=== PATIENT | female | born 1960 | race Caucasian/White ===

== ENCOUNTER 2019-12-13 10:49 | Outpatient (CLI) | payer OTHER, SELFPAY ==
--- NOTE | ~2019-12-13 | MR_ITS ---
EXAMINATION: MR lumbar spine wo con DATE: 12/13/2019 11:48 INDICATION: Low back pain TECHNIQUE: Magnetic resonance imaging (MRI) of the lumbar spine was performed without intravenous con trast. Sequences included sagittal T2-weighted FSE, sagittal T2-weighted FS FSE, sagittal T1-weighted FSE, and axial T2-weighted FSE. COMPARISON: None FINDINGS: 2 mm anterolisthesis L4 on L5. Vertebral body heights are normal. Schmorl's nodes along the endplates from 11 T12-L3 L4. Normal marrow signal. Mild disc height loss from T11-T12 through L5-S1. Annular f issure at L5-S1. The conus medullaris terminates at L2 on L2. There is normal signal in the caudal sp inal cord. Paravertebral soft tissues are unremarkable. The following disc levels are specifically di scussed: T12-L1: Disc is mildly bulging. In addition Schmorl's node along the inferior endplate of T12 results in 2 mm left paracentral retropulsion. There is mild bilateral facet joint osteoarthritis. There is no neural foraminal stenosis. There is mild central canal stenosis with mild flattening of the left v entral surface of the cord. L1-L2: Disc is mildly bulging. There is minimal bilateral facet joint osteoarthritis. There is mild b ilateral neural foraminal stenosis. There is mild central canal stenosis. L2-L3: Disc is bulging superimposed right foraminal zone disc protrusion. There is mild right and min imal left facet joint osteoarthritis. There is mild right and minimal left neural foraminal stenosis. There is mild central canal stenosis. L3-L4: Diffuse disc bulge. There is mild to moderate right and minimal left facet joint osteoarthriti s. There is mild bilateral neural foraminal stenosis. There is moderate to severe central canal steno sis measuring 4-5 mm AP in the mid sagittal plane with minimal CSF signal surrounding the centrally c lustered nerve roots along with narrowing of the lateral recesses, right greater than left. L4-L5: Disc is bulging. There is mild to moderate right and minimal left facet joint osteoarthritis. There is mild to moderate bilateral neural foraminal stenosis. There is moderate central canal stenos is along with narrowing of the lateral recesses, right greater than left.. L5-S1: Disc is mildly bulging with superimposed central annular fissure and disc protrusion. There is mild bilateral facet joint osteoarthritis. There is mild bilateral neural foraminal stenosis. There is minimal central canal stenosis with mild narrowing of the lateral recesses, left greater than righ t. IMPRESSION: 1. Moderate cervical spondylosis most notable for moderate to severe central canal stenosis at L3-L4. Reviewed, dictated and finalized at location A. IMPRESSION: 1. Moderate cervical spondylosis most notable for moderate to severe central ca nal stenosis at L3-L4.
== END 2019-12-13 10:50 | disposition home or self-care (01) ==
PROVIDERS: PCP Family Medicine; Visit Provider Physical Medicine & Rehabilitation Pain Medicine
DX: M47.816 Spondylosis without myelopathy or radiculopathy, lumbar region (principal); M48.061 Spinal stenosis, lumbar region without neurogenic claudication
CPT/HCPCS: 72148

== ENCOUNTER 2020-02-17 16:07 | Outpatient (CLI) | payer OTHER, SELFPAY ==
--- NOTE | ~2020-02-17 | MM_ITS ---
EXAMINATION: MM scrn james implant BI w jack HISTORY: Screening mammogram TECHNIQUE: Craniocaudal and mediolateral oblique 3-D tomosynthesis images with implant displacement a nd synthetic 2-D images were generated. Craniocaudal and mediolateral oblique views of the breasts wi thout implant displacement were obtained using full field digital mammography. CAD analysis was submi tted and interpreted. COMPARISON: 02/10/2019, 02/06/2018, 01/25/2017 BREAST PARENCHYMAL COMPOSITION: The breasts are heterogeneously dense, which may obscure small masses . FINDINGS: Focal asymmetry in the anterior third of the upper outer quadrant of the left breast is sta ble on multiple prior examinations, consistent with a benign finding. There is no evidence of suspici ous mass, calcification, or architectural distortion to suggest malignancy in either breast. There mills s been no suspicious interval change. IMPRESSION: 1. No mammographic evidence of malignancy. 2. Recommend routine screening mammography in one year. BI-RADS Category 2: Benign finding(s). Reviewed, dictated and finalized at location A.
== END 2020-02-17 16:08 | disposition home or self-care (01) ==
LOC: ANHIMG 16:09
PROVIDERS: PCP Family Medicine; Visit Provider Obstetrics & Gynecology
DX: Z12.31 Encounter for screening mammogram for malignant neoplasm of breast (principal)
CPT/HCPCS: 77063; 77067

== ENCOUNTER 2020-09-06 15:21 | Outpatient (CLI) | payer OTHER, SELFPAY ==
--- NOTE | ~2020-09-06 | XR_ITS ---
XR hip LT min 2V DATE: 09/06/2020 15:50 INDICATION: Chronic left hip pain TECHNIQUE: AP, lateral, crosstable lateral views of left hip COMPARISON: None FINDINGS: No fracture or dislocation, avascular necrosis or bone destruction is evident. There is min imal spurring of the left hip joint consistent with mild osteoarthritis. The pubic symphysis and sacroiliac joints appear intact. IMPRESSION: Mild left hip osteoarthritis Reviewed, dictated and finalized at location A.
--- NOTE | ~2020-09-06 | XR_ITS ---
XR hip RT min 2V DATE: 09/06/2020 15:49 INDICATION: Chronic hip and groin pain TECHNIQUE: AP, lateral, crosstable lateral views of right hip COMPARISON: None FINDINGS: No fracture or dislocation, avascular necrosis or bone destruction. Right hip joint space a ppears well preserved. The pubic symphysis and right sacroiliac joint appear intact. IMPRESSION: No significant abnormality Reviewed, dictated and finalized at location A. IMPRESSION: No significant abnormality
== END 2020-09-06 15:22 | disposition home or self-care (01) ==
PROVIDERS: PCP Family Medicine; Visit Provider Physical Medicine & Rehabilitation Pain Medicine
DX: M16.12 Unilateral primary osteoarthritis, left hip (principal)
CPT/HCPCS: 73502

== ENCOUNTER 2020-09-10 15:40 | Outpatient (CLI) | payer OTHER, SELFPAY | END 2020-09-10 15:41 | disposition home or self-care (01) | LOC: ANHCOVIDVC 15:40 | PROVIDERS: PCP Family Medicine | DX: Z23 Encounter for immunization (principal) | CPT/HCPCS: 0001A; 91300 ==

== ENCOUNTER 2020-10-01 15:24 | Outpatient (CLI) | payer OTHER, SELFPAY | END 2020-10-01 15:25 | disposition home or self-care (01) | LOC: ANHCOVIDVC 15:24 | PROVIDERS: PCP Family Medicine | DX: Z23 Encounter for immunization (principal) | CPT/HCPCS: 0002A; 91300 ==

== ENCOUNTER 2021-02-18 15:47 | Outpatient (CLI) | payer OTHER, SELFPAY ==
--- NOTE | ~2021-02-18 | MM_ITS ---
EXAMINATION: MM scrn james implant BI w jack HISTORY: Screening mammogram TECHNIQUE: Craniocaudal and mediolateral oblique 3-D tomosynthesis images with implant displacement a nd synthetic 2-D images were generated. Craniocaudal and mediolateral oblique views of the breasts wi thout implant displacement were obtained using full field digital mammography. CAD analysis was submi tted and interpreted. COMPARISON: Comparison to multiple prior studies sequentially, with oldest reviewed study dated 01/16. BREAST PARENCHYMAL COMPOSITION: The breasts are heterogeneously dense, which may obscure small masses . FINDINGS: There is no evidence of suspicious mass, calcification, or architectural distortion to sugg est malignancy in either breast. There has been no suspicious interval change. IMPRESSION: 1. No mammographic evidence of malignancy. 2. Recommend routine screening mammography in one year. BI-RADS Category 1: Negative Reviewed, dictated and finalized at location A.
== END 2021-02-18 15:48 | disposition home or self-care (01) ==
LOC: ANHIMG 15:49
PROVIDERS: PCP Family Medicine; Visit Provider Obstetrics & Gynecology
DX: Z12.31 Encounter for screening mammogram for malignant neoplasm of breast (principal)
CPT/HCPCS: 77063; 77067

== ENCOUNTER → 2021-05-31 09:43 | Outpatient (CLI) | payer OTHER, SELFPAY ==
[2021-06-01 20:26] LABS: SARS-CoV-2 RNA PCR Negative
== END ==
PROVIDERS: PCP Family Medicine; Visit Provider Family Medicine
DX: J06.9 Acute upper respiratory infection, unspecified (principal); Z20.822 Contact with and (suspected) exposure to COVID-19
CPT/HCPCS: C9803; U0003; U0005

== ENCOUNTER 2022-03-25 11:34 | Outpatient (CLI) | payer OTHER, SELFPAY ==
--- NOTE | ~2022-03-25 | MM_ITS ---
EXAMINATION: MM scrn james implant BI w jack HISTORY: Screening mammogram TECHNIQUE: Craniocaudal and mediolateral oblique 3-D tomosynthesis images with implant displacement a nd synthetic 2-D images were generated. Craniocaudal and mediolateral oblique views of the breasts wi thout implant displacement were obtained using full field digital mammography. CAD analysis was submi tted and interpreted. COMPARISON: 02/18/2021, 02/17/2020, 02/10/2019 BREAST PARENCHYMAL COMPOSITION: The breasts are heterogeneously dense, which may obscure small masses . FINDINGS: There is no evidence of suspicious mass, calcification, or architectural distortion to sugg est malignancy in either breast. There has been no suspicious interval change. IMPRESSION: 1. No mammographic evidence of malignancy. 2. Recommend routine screening mammography in one year. BI-RADS Category 1: Negative Reviewed, dictated and finalized at location A.
== END 2022-03-25 11:35 | disposition home or self-care (01) ==
PROVIDERS: PCP Family Medicine; Visit Provider Obstetrics & Gynecology
DX: Z12.31 Encounter for screening mammogram for malignant neoplasm of breast (principal)
CPT/HCPCS: 77063; 77067

== ENCOUNTER 2023-02-06 14:57 | Emergency (ER) | payer OTHER, SELFPAY ==
[2023-02-06 15:09] VITALS: BP 114/75; PULSE 80; RESP 16; TEMP 36.6; O2SAT 99
--- NOTE | 2023-02-06 15:13 | ED.URI ---
HPI - URI/Sore Throat General Chief Complaint: Upper Respiratory Infection Stated Complaint: sorethroat,bilateral ear pain Time Seen by Provider: 02/06/23 15:14 Source: patient, RN notes reviewed and old records reviewed Mode of arrival: ambulatory Limitations: no limitations History of Present Illness HPI Narrative: 62 year old female who presents to [facility] care with complaints of 3 week duration of sore throat, sinus drainage, and headache discomfort with some ear discomfort/pressure also. Patient reports that she has been taking Velia and using Nasacort nasal spray and also been taking some DayQuil with no resolution of symptoms. Patient reports that she has some popping and cracking in her ears, denies any fevers,chills or body aches, denies any nausea or vomiting or any shortness of breath. Patient does admit to sinus drainage and pressure in her face and ears. MD elicited complaint: cough and sore throat Onset (ago): week(s) (3) Treatments prior to arrival: other (Velia sinus spray and DayQuil) Related Data Home Medications Medication Instructions Recorded Confirmed cetirizine 10 mg tablet (Zyrtec) 10 mg PO DAILY 09/02/19 02/06/23 triamcinolone acetonide 55 mcg 2 spray intranasal DAILY 09/02/19 02/06/23 nasal spray aerosol (Nasacort) carboxymethylcellulose sodium 0.5 1 drop ophthalmic (eye) BID 02/19/20 02/06/23 % eye drops (Refresh Tears) valacyclovir 1 gram tablet 1,000 mg PO DAILY PRN herpes 01/05/21 02/06/23 zolpidem 12.5 mg tablet,extended 12.5 mg PO QHS PRN Insomnia 01/05/21 02/06/23 release,multiphase (Ambien CR) Allergies Allergy/AdvReac Type Severity Reaction Status Date / Time ampicillin AdvReac Intermediate Nausea and Verified 02/06/23 15:02 Vomiting hydrocodone AdvReac Intermediate NAUSEA Verified 02/06/23 15:02 VOMITING morphine AdvReac Intermediate Nausea and Verified 02/06/23 15:02 Vomiting Penicillins AdvReac Intermediate Nausea and Verified 02/06/23 15:02 Vomiting Review of Systems Review of Systems: CONSTITUTIONAL: Denies malaise, chills, sweats, or fever. EYES: Denies visual changes, redness, or discharge. ENT: Reports rhinorrhea, congestion, sinus pain, otalgia and sore throat. CARDIOVASCULAR: Denies chest pain, palpitations, or edema. RESPIRATORY: Reports occasional dry cough.? Denies dyspnea. GASTROINTESTINAL: Denies abdominal pain, nausea, vomiting, diarrhea SKIN: Denies rash or itching. MUSCULOSKELETAL: Denies myalgia. NEUROLOGIC: Reports headache. All systems reviewed & are unremarkable except as noted in HPI and below PMFSH Past Medical History Medical History Allergic rhinitis Surgical History Surgical History H/O breast augmentation H/O foot surgery Family History Family History Father Family history of chronic obstructive pulmonary disease, Onset Age: 75 Patient's father is Malignant neoplasm of prostate Mother Heart disease Glaucoma Social History Social History Smoking status: Never smoker Second hand tobacco smoke exposure: No Alcohol intake: current Drinks per week: 1 Alcohol use details: socially; seldom Substance use: never Substance use type: does not use Lack of Transportation: No Lack of Food: Never True Current Housing: I Have Housing Concerned About Future Housing: No Difficulty Paying Gas/Electric Bills: No Difficulty Paying for Meds: No Currently Unemployed: No Education: Master's Degree or Higher Difficulty w/ Childcare or Family Care: No Gender identity (if verbalized by the patient): Female Comments At time of signature, agree with nursing past medical, surgical, social and family history. There is no relevant family histor
== END 2023-02-06 15:32 | disposition home or self-care (01) ==
PROVIDERS: Emergency Provider Registered Nurse; PCP Family Medicine
DX: J01.40 Acute pansinusitis, unspecified (principal)
CPT/HCPCS: 99213; G0463

== ENCOUNTER 2023-02-14 11:57 | Emergency (ER) | payer OTHER, SELFPAY ==
[2023-02-14 12:02] VITALS: BP 110/69; PULSE 86; RESP 16; TEMP 36.7; O2SAT 99
[2023-02-14 12:07] VITALS: BP 110/69; PULSE 86; RESP 16; TEMP 36.7; O2SAT 99
--- NOTE | 2023-02-14 12:12 | ED.URI ---
HPI - URI/Sore Throat General Chief Complaint: Upper Respiratory Infection Stated Complaint: sorethroat,bilateral ear discomfort Time Seen by Provider: 02/14/23 12:12 Source: patient Mode of arrival: ambulatory Limitations: no limitations History of Present Illness HPI Narrative: 62 yo F presents with c/o sinus congestion/pressure, PND, intermittent sore throat, dry cough for over a month. States her head feels full . Yesterday had some dizziness when riding in a car. Afebrile. Denies N/V. Taking doug and nasocort. Pt states i know its all from my sinuses . Recently took zpak and did not help. All systems reviewed and negative except as noted above. Related Data Home Medications Medication Instructions Recorded Confirmed cetirizine 10 mg tablet (Zyrtec) 10 mg PO DAILY 09/02/19 02/14/23 carboxymethylcellulose sodium 0.5 1 drop ophthalmic (eye) BID 02/19/20 02/14/23 % eye drops (Refresh Tears) zolpidem 12.5 mg tablet,extended 12.5 mg PO QHS PRN Insomnia 01/05/21 02/14/23 release,multiphase (Ambien CR) Allergies Allergy/AdvReac Type Severity Reaction Status Date / Time ampicillin AdvReac Intermediate Nausea and Verified 02/14/23 12:06 Vomiting hydrocodone AdvReac Intermediate NAUSEA Verified 02/14/23 12:06 VOMITING morphine AdvReac Intermediate Nausea and Verified 02/14/23 12:06 Vomiting Penicillins AdvReac Intermediate Nausea and Verified 02/14/23 12:06 Vomiting Review of Systems Review of Systems: CONSTITUTIONAL: Denies fever, chills, or sweats. EYES: Denies visual changes, redness, or discharge. ENT: reports rhinorrhea, congestion, intermittent sore throat, bilateral ear pressure. CARDIOVASCULAR: Denies chest pain, palpitations, or edema. RESPIRATORY: Reports cough. Denies dyspnea. GASTROINTESTINAL: Denies abdominal pain, nausea, vomiting, or diarrhea. GENITOURINARY: Denies dysuria or hematuria. SKIN: Denies rash or itching. MUSCULOSKELETAL: Denies back pain, joint pain, or myalgia. NEUROLOGIC: Denies headache, numbness, or weakness. PSYCHIATRIC: Denies anxiety or depression. All other systems reviewed are negative, except as documented in HPI. [facility]LY [facility], [facility] Past Medical History Medical History (Updated 02/14/23 @ 12:19 by Norma Parks NP) Allergic rhinitis Surgical History Surgical History H/O breast augmentation H/O foot surgery Family History Family History Father Family history of chronic obstructive pulmonary disease, Onset Age: 75 Patient's father is Malignant neoplasm of prostate Mother Heart disease Glaucoma Social History Social History Smoking status: Never smoker Second hand tobacco smoke exposure: No Alcohol intake: current Drinks per week: 1 Alcohol use details: socially; seldom Substance use: never Substance use type: does not use Lack of Transportation: No Lack of Food: Never True Current Housing: I Have Housing Concerned About Future Housing: No Difficulty Paying Gas/Electric Bills: No Difficulty Paying for Meds: No Currently Unemployed: No Education: Master's Degree or Higher Difficulty w/ Childcare or Family Care: No Gender identity (if verbalized by the patient): Female Comments At time of signature, agree with nursing past medical, surgical, social and family history. There is no relevant family history pertinent to the presenting complaint. Exam Narrative: GENERAL: This is a well-nourished, well-developed patient, in no apparent distress. HEAD: normocephalic, atraumatic. EYES: PERRL. Sclera clear/white. Vision is grossly intact. EARS: External ears normal, auditory canals clear and without drainage, fluid bilateral TMs with mild bulging. No perforation or erythema NOSE: External nose normal with no obviou
== END 2023-02-14 12:23 | disposition home or self-care (01) ==
PROVIDERS: Emergency Provider Nurse Practitioner Family; PCP Family Medicine
DX: J01.90 Acute sinusitis, unspecified (principal)
CPT/HCPCS: 99213; G0463

== ENCOUNTER 2023-04-02 09:00 | Outpatient (CLI) | payer OTHER, SELFPAY ==
--- NOTE | ~2023-04-02 | MM_ITS ---
EXAMINATION: MM scrn james implant BI w jack HISTORY: Screening mammogram TECHNIQUE: Craniocaudal and mediolateral oblique 3-D tomosynthesis images with implant displacement a nd synthetic 2-D images were generated. Craniocaudal and mediolateral oblique views of the breasts wi thout implant displacement were obtained using full field digital mammography. CAD analysis was submi tted and interpreted. COMPARISON: 03/25/2022, , 02/17/2020 bilateral implant screening mammogram examinations BREAST PARENCHYMAL COMPOSITION: The breasts are heterogeneously dense, which may obscure small masses . FINDINGS: Status post bilateral augmentation mammoplasty. There is no evidence of suspicious mass, ca lcification, or architectural distortion to suggest malignancy in either breast. There has been no beasley spicious interval change. IMPRESSION: 1. No mammographic evidence of malignancy. 2. Recommend routine screening mammography in one year. BI-RADS Category 1: Negative Reviewed, dictated and finalized at location A.
== END 2023-04-02 09:01 | disposition home or self-care (01) ==
LOC: ANHIMG 09:02
PROVIDERS: PCP Family Medicine; Visit Provider Obstetrics & Gynecology
DX: Z12.31 Encounter for screening mammogram for malignant neoplasm of breast (principal)
CPT/HCPCS: 77063; 77067

== ENCOUNTER → 2023-04-20 12:46 | Outpatient (CLI) | payer OTHER, SELFPAY ==
--- NOTE | ~2023-04-20 | CT_ITS ---
EXAMINATION: CT sinus wo con DATE: 04/20/2023 13:00 INDICATION: Sinusitis TECHNIQUE: Computed tomography (CT) of the paranasal sinuses was performed without intravenous contra st. The dose-length product was 277.35 mGy-cm. COMPARISON: CT dated 10/05/2014 FINDINGS: There is no significant mucosal thickening. No air-fluid levels. No mucoperiosteal reaction . No significant nasal septal deviation. Mastoids are pneumatized. Ostiomeatal units are patent. IMPRESSION: 1. No significant sinus disease. Reviewed, dictated and finalized at location B.
== END ==
PROVIDERS: PCP Family Medicine; Visit Provider Otolaryngology
DX: J32.9 Chronic sinusitis, unspecified (principal)
CPT/HCPCS: 70486

== ENCOUNTER 2023-09-14 13:18 | Emergency (ER) | payer OTHER, SELFPAY ==
[2023-09-14 13:26] VITALS: BP 133/88; PULSE 83; RESP 16; TEMP 36.5; O2SAT 100
--- NOTE | 2023-09-14 13:26 | ED.URI ---
HPI - URI/Sore Throat General Chief Complaint: Upper Respiratory Infection Stated Complaint: Sinus Time Seen by Provider: 09/14/23 13:20 Source: patient Mode of arrival: ambulatory Limitations: no limitations History of Present Illness HPI Narrative: Patient is a 63-year-old female that presents with sinus congestion and pressure. Patient was seen by ENT on September 10 and was given steroids. Patient has not completed course of steroids. At that time patient reports symptoms had been present for 2-3 weeks. Patient reports taking [id number] medications with no relief. Denies any fever, chills, nausea, vomiting, diarrhea. Gets biweekly allergy shots Related Data Home Medications Medication Instructions Recorded Confirmed carboxymethylcellulose sodium 0.5 1 drop ophthalmic (eye) BID 02/19/20 09/14/23 % eye drops (Refresh Tears) zolpidem 12.5 mg tablet,extended 12.5 mg PO QHS PRN Insomnia 01/05/21 09/14/23 release,multiphase (Ambien CR) fexofenadine 60 mg tablet (Velia 60 mg PO Q12H 03/05/23 09/14/23 Allergy) cyclosporine 0.05 % eye drops in a 1 drp EACH EYE Q12H 08/31/23 09/14/23 dropperette (Restasis) ipratropium bromide 21 mcg (0.03 2 spray intranasal BID 09/14/23 09/14/23 %) nasal spray prednisone 20 mg tablet 20 mg PO BID 09/14/23 09/14/23 Allergies Allergy/AdvReac Type Severity Reaction Status Date / Time ampicillin AdvReac Intermediate Nausea and Verified 09/14/23 13:23 Vomiting hydrocodone AdvReac Intermediate NAUSEA Verified 09/14/23 13:23 VOMITING morphine AdvReac Intermediate Nausea and Verified 09/14/23 13:23 Vomiting Penicillins AdvReac Intermediate Nausea and Verified 09/14/23 13:23 Vomiting Review of Systems Review of Systems: All systems reviewed & are unremarkable except as noted in HPI and below Constitutional: Constitutional: Denies body ache(s), Denies chills, Denies fatigue, Denies fever(s), Denies headache(s), Denies malaise and Denies weakness Eyes: Eyes: Denies blurry vision, Denies itchy eyes and Denies loss of vision ENT: Denies otalgia, Denies headache(s), Reports nasal congestion, Reports sinus pain, Reports sinus pressure and Denies sore throat Cardiovascular: Cardiovascular: Denies chest pain, Denies irregular heart rhythm and Denies dyspnea Respiratory: Respiratory: Denies cough and Denies dyspnea Gastrointestinal: Gastrointestinal: Denies abdominal pain, Denies diarrhea, Denies nausea and Denies vomiting Musculoskeletal: Musculoskeletal: Denies back pain, Denies myalgias and Denies arthralgias Integumentary/Breasts: Skin/Breast: Denies pruritus and Denies rash Neurologic: Denies headache(s), Denies loss of vision and Denies weakness Psychiatric: Psychiatric: Reports no additional psychiatric complaints Endocrine: Endocrine: Denies fatigue Allergic/Immunologic: Allergic/Immunologic: Denies itchy eyes PMFSH Past Medical History Medical History Allergic rhinitis Hyperlipidemia Surgical History Surgical History H/O breast augmentation H/O foot surgery Family History Family History Father Family history of chronic obstructive pulmonary disease, Onset Age: 75 Patient's father is Malignant neoplasm of prostate Mother Heart disease Glaucoma Social History Social History Smoking status: Never smoker Second hand tobacco smoke exposure: No Alcohol intake: current Drinks per week: 1 Alcohol use details: socially; seldom Substance use: never Substance use type: does not use Lack of Transportation: No Lack of Food: Never True Current Housing: I Have Housing Concerned About Future Housing: No Difficulty Paying Gas/Electric Bills: No Difficulty Paying for Meds: No
== END 2023-09-14 13:40 | disposition home or self-care (01) ==
PROVIDERS: Emergency Provider Nurse Practitioner Family; PCP Family Medicine
DX: J01.40 Acute pansinusitis, unspecified (principal); E78.5 Hyperlipidemia, unspecified
CPT/HCPCS: 99213; G0463

== ENCOUNTER 2023-12-14 13:58 | Emergency (ER) | payer OTHER, SELFPAY ==
[2023-12-14 14:07] VITALS: BP 114/77; PULSE 81; RESP 15; TEMP 36.9; O2SAT 97
--- NOTE | 2023-12-14 14:19 | ED.SKABFB ---
HPI - Skin/Abscess/Foreign Bdy General Chief complaint: Skin/Abscess/Foreign Body Stated complaint: spider bite rt leg Time Seen by Provider: 12/14/23 14:19 Source: patient Mode of arrival: ambulatory Limitations: no limitations History of Present Illness HPI narrative: 63-year-old female presented for complaint of possible insect bite to the right lower leg sustained 1 week ago. She reports since then she has had more redness, itching, and warmth to the site. She has applied calamine, toothpaste, hydrocortisone, and alcohol to the site. Denies lip, tongue, or throat swelling, shortness of breath or wheezing. Denies changes to soap, detergent, lotion, or any other exposures. No one else in the house or any contacts with similar symptoms. Related Data Home Medications Medication Instructions Recorded Confirmed carboxymethylcellulose sodium 0.5 1 drop ophthalmic (eye) BID 02/19/20 12/14/23 % eye drops (Refresh Tears) zolpidem 12.5 mg tablet,extended 12.5 mg PO QHS PRN Insomnia 01/05/21 12/14/23 release,multiphase (Ambien CR) fexofenadine 60 mg tablet (Velia 60 mg PO Q12H 03/05/23 12/14/23 Allergy) cyclosporine 0.05 % eye drops in a 1 drp EACH EYE Q12H 08/31/23 12/14/23 dropperette (Restasis) ipratropium bromide 21 mcg (0.03 2 spray intranasal BID 09/14/23 12/14/23 %) nasal spray Allergies Allergy/AdvReac Type Severity Reaction Status Date / Time ampicillin AdvReac Intermediate Nausea and Verified 12/14/23 14:17 Vomiting hydrocodone AdvReac Intermediate NAUSEA Verified 12/14/23 14:17 VOMITING morphine AdvReac Intermediate Nausea and Verified 12/14/23 14:17 Vomiting Penicillins AdvReac Intermediate Nausea and Verified 12/14/23 14:17 Vomiting Review of Systems Review of Systems: CONSTITUTIONAL: Denies body aches, fever, chills, or sweats. EYES: Denies visual changes, redness, or discharge. ENT: Denies rhinorrhea, congestion CARDIOVASCULAR: Denies chest pain, palpitations, or edema. RESPIRATORY: Denies cough or dyspnea. GASTROINTESTINAL: Denies abdominal pain, nausea, vomiting, or diarrhea. SKIN: reports insect bite right leg MUSCULOSKELETAL: Denies back pain, joint pain, or myalgia. NEUROLOGIC: Denies headache, numbness, tingling, or weakness. [facility] Past Medical History Medical History Allergic rhinitis Hyperlipidemia Surgical History Surgical History H/O breast augmentation H/O foot surgery Family History Family History Father Family history of chronic obstructive pulmonary disease, Onset Age: 75 Patient's father is Malignant neoplasm of prostate Mother Heart disease Glaucoma Social History Social History Smoking status: Never smoker Second hand tobacco smoke exposure: No Alcohol intake: current Drinks per week: 1 Alcohol use details: socially; seldom Substance use: never Substance use type: does not use Lack of Transportation: No Lack of Food: Never True Current Housing: I Have Housing Concerned About Future Housing: No Difficulty Paying Gas/Electric Bills: No Difficulty Paying for Meds: No Currently Unemployed: No Education: Master's Degree or Higher Difficulty w/ Childcare or Family Care: No Gender identity (if verbalized by the patient): Female Comments At time of signature, I have reviewed and agree with nursing past medical, surgical, social and family history unless otherwise noted. Please see nursing chart for further information. There is no relevant family history pertinent to the presenting complaint Exam Narrative: GENERAL: Well-appearing HEAD: Normocephalic, atraumatic. EYES: conjunctivae clear, and EOMI. ENT: Mucous membranes moist. Oropharynx without edema
== END 2023-12-14 14:30 | disposition home or self-care (01) ==
PROVIDERS: Emergency Provider Nurse Practitioner Family; PCP Family Medicine
DX: L30.9 Dermatitis, unspecified (principal); E78.5 Hyperlipidemia, unspecified
CPT/HCPCS: 99213; G0463

== ENCOUNTER 2024-04-04 13:50 | Outpatient (CLI) | payer OTHER, SELFPAY ==
--- NOTE | ~2024-04-04 | MM_ITS ---
EXAMINATION: MM scrn james implant BI w jack HISTORY: Screening mammogram TECHNIQUE: Craniocaudal and mediolateral oblique 3-D tomosynthesis images with implant displacement a nd synthetic 2-D images were generated. Craniocaudal and mediolateral oblique views of the breasts wi thout implant displacement were obtained using full field digital mammography. CAD analysis was submi tted and interpreted. COMPARISON: Comparison to multiple prior studies sequentially, with oldest reviewed study dated 02/06. BREAST PARENCHYMAL COMPOSITION: Dense: The breasts are heterogeneously dense, which may obscure small masses FINDINGS: There is no evidence of suspicious mass, calcification, or architectural distortion to sugg est malignancy in either breast. There has been no suspicious interval change. IMPRESSION: 1. No mammographic evidence of malignancy. 2. Recommend routine screening mammography in one year. BI-RADS Category 1: Negative Reviewed, dictated and finalized at location B.
== END 2024-04-04 13:51 | disposition home or self-care (01) ==
LOC: ANHIMG 13:52
PROVIDERS: PCP Family Medicine; Visit Provider Obstetrics & Gynecology
DX: Z12.31 Encounter for screening mammogram for malignant neoplasm of breast (principal); Z98.82 Breast implant status
CPT/HCPCS: 77063; 77067

== ENCOUNTER 2025-04-15 14:15 | Outpatient (CLI) | payer OTHER, SELFPAY ==
--- OUTSIDE RECORDS SUMMARY | 2024-04-29 06:00 | XMS_ITS ---
Author Organization [facility] ([address]) Address [address] [place] [address] Care Team Providers Care Solar Engineer Name Role Phone Kendrick Pandey Unavailable [phone] REASON FOR VISIT [facility] Weight Loss, on Tirzepatide, no side effects, meeting calorie. decreased appetite suppression, reports adequate protein intake, encouraged increased fluid intake, Desired weight loss: goal wt 135 lbs, -0.8 lbs since last visit, -24.7 lbs total, No history MTC or MEN2 or pancreatitis, Concerned about future DM and OA Medications Medication SIG (Take, Route, Frequency, Duration) Notes Start Date End Date Status Simvastatin 20 MG 1 tab(s) orally once a day (in the evening) Active Align 4 MG 1 cap(s) orally once a day Active Claritin 10 MG 1 tab(s) orally once a day Active Montelukast Sodium 10 MG 1 tab(s) orally once a day Active Ipratropium [place] 21 MCG/INH 2 SPRAY(S) INTRANASALLY 3 TIMES A DAY *Please review and pick correct strength-formulatio n from Medispan options. If intended option is not shown, discontinue and re-order from Quick Search* Active Zolpidem Tartrate ER 12.5 MG 1 tab(s) orally once a day (at bedtime) Active Restasis 0.05 % 1 gtt in each affected eye every 12 hours Active Vital Signs Height 67 in 04/29/2024 Weight 141.2 lbs 04/29/2024 BMI 22.11 kg/m2 04/29/2024 Encounters Encounter Location Date Provider Diagnosis [facility] ([address]) [address] [place] [address] 04/29/2024 Kendrick Pandey Chronic fatigue, unspecified R53.82 ; Abnormal weight gain R63.5 ; Other fatigue R53.83 and Other malaise R53.81 Assessments Encounter Date Diagnosis (ICD Code) Assessment Notes Treatment Notes Treatment Clinical Notes Section Notes 04/29/2024 Chronic fatigue, unspecified (ICD-10 - R53.82) 04/29/2024 Abnormal weight gain (ICD-10 - R63.5) 04/29/2024 Other fatigue (ICD-10 - R53.83) 04/29/2024 Other malaise (ICD-10 - R53.81) Plan Of Treatment Next Appt Details Follow Up: 1 Week, Reason: G LP-1 Agonist Administration Procedure Notes * Category Sub-Category Detail Notes [facility]: Weight Management tirzepatide Indication: weig ht loss Concentration: 10 mg/mL Volume Administered: 0.3 mL Dose Administered: 3 mg Route: SQ Location: Right abdomen Frequency: weekly Lot Number/Expiration: Medication Source: [employer]und[employer] Adverse Reaction: None Progress Notes * Emma YOUNGDOB:1960 (64 yo F)Acc No.[id number]:04/29/2024 Weight Loss Patient: Emma PENA Provider: Lydia Pandey MD :1960 A ge:63 Y S ex:Female Date:04/29/2024 Address:[address] [place] [address] Subjective: * Chief Complaints: * 1 . [facility] Weight Loss, on Tirzepatide, no side effects, meeting calorie. decreased appetite suppression, reports adequate protein intake, encouraged increased fluid intake. 2. Desired weight loss: goal wt 135 lbs, -0.8 lbs since last visit, -24.7 lbs total. 3. No history MTC or MEN2 or pancreatitis. 4. Concerned about future DM and OA. * Medical History: * Medications: T aking Align 4 MG Capsule 1 cap(s) orally once a day , Taking Zolpidem Tartrate ER 12.5 MG Tablet Extended Release 1 tab(s) orally once a day (at bedtime) , Taking Restasis 0.05 % Emulsion 1 gtt in each affected eye every 12 hours , Taking Claritin 10 MG Tablet 1 tab(s) orally once a day , Taking Montelukast Sodium 10 MG Tablet 1 tab(s) orally once a day , Taking Ipratropium [place] 21 MCG/INH SPRAY 2 SPRAY(S) INTRANASALLY 3 TIMES A DAY , Notes to Pharmacist: *Please review and pick correct strength-formulation from Medispan options. If intended option is not shown, discontinue and re-order from Quick Search*, Taking Simvastatin 20 MG Tablet 1 tab(s) orally once a day (in the evening) Objective: * Vitals: H t: 67 in, Wt: 141.2 lbs, BMI:22.11Index. Assessment: * Assessment: 1. A bnormal weight gain - R63.5 (Primary) 2 . C hronic fatigue, unspecified - R53.82 3 . O ther fatigue - R53.83 4 . O ther malaise - R53.81 Plan: * Treatment: * Procedures: Q uell: Weight Management: tirzepatide I ndication w eight loss C oncentration 1 0 mg/mL V olume Administered 0 .3 mL D ose Administered 3 mg R oute S Q L ocation R ight abdomen F requency w eekly L ot Number/Expiration M edication Source A H [employer] A dverse Reaction N one * Follow Up: 1 Week (Reason: GLP-1 Agonist Administration) * Billing Information: * Visit Code: * Procedure Codes: * Electronic signature of Sil Pandey MD, FAAAAI on 04/15/2025 at 06:25 PM CDT Sign off status: Pending * Provider: Lydia Pandey MD Date: 06/29/2023 Generated for Teresai ethan/Nav/eTmarilyn on: 06:25 PM CDT
--- OUTSIDE RECORDS SUMMARY | 2024-05-06 06:00 | XMS_ITS ---
Author Organization [facility] ([address]) Address [address] [place] [address] Care Team Providers Care Call Center Assistant Name Role Phone Kendrick Pandey Unavailable [phone] REASON FOR VISIT [facility] Weight Loss, on Tirzepatide, no side effects, meeting calorie. adequate appetite suppression, reports adequate protein intake, encouraged increased fluid intake, Desired weight loss: goal wt 135 lbs, -0.6 lbs since last visit, -25.3 lbs total, No history MTC or MEN2 or pancreatitis, Concerned about future DM and OA Medications Medication SIG (Take, Route, Frequency, Duration) Notes Start Date End Date Status Simvastatin 20 MG 1 tab(s) orally once a day (in the evening) Active Ipratropium [place] 21 MCG/INH 2 SPRAY(S) INTRANASALLY 3 TIMES A DAY *Please review and pick correct strength-formulatio n from Medispan options. If intended option is not shown, discontinue and re-order from Quick Search* Active Montelukast Sodium 10 MG 1 tab(s) orally once a day Active Claritin 10 MG 1 tab(s) orally once a day Active Restasis 0.05 % 1 gtt in each affected eye every 12 hours Active Zolpidem Tartrate ER 12.5 MG 1 tab(s) orally once a day (at bedtime) Active Align 4 MG 1 cap(s) orally once a day Active Vital Signs Height 67 in 05/06/2024 Weight 140.6 lbs 05/06/2024 BMI 22.02 kg/m2 05/06/2024 Encounters Encounter Location Date Provider Diagnosis [facility] ([address]) [address] [place] [address] 05/06/2024 Kendrick Pandey Chronic fatigue, unspecified R53.82 ; Abnormal weight gain R63.5 ; Other fatigue R53.83 and Other malaise R53.81 Assessments Encounter Date Diagnosis (ICD Code) Assessment Notes Treatment Notes Treatment Clinical Notes Section Notes 05/06/2024 Chronic fatigue, unspecified (ICD-10 - R53.82) 05/06/2024 Abnormal weight gain (ICD-10 - R63.5) 05/06/2024 Other fatigue (ICD-10 - R53.83) 05/06/2024 Other malaise (ICD-10 - R53.81) Plan Of Treatment Next Appt Details Follow Up: 1 Week, Reason: G LP-1 Agonist Administration Procedure Notes * Category Sub-Category Detail Notes [facility]: Weight Management tirzepatide Indication: weig ht loss Concentration: 10 mg/mL Volume Administered: 0.3 mL Dose Administered: 3 mg Route: SQ Location: Left abdomen Frequency: weekly Lot Number/Expiration: Medication Source: [employer]und[employer] Adverse Reaction: None Progress Notes * Emma YOUNGDOB:1960 (64 yo F)Acc No.[id number]:05/06/2024 Weight Loss Patient: Emma PENA Provider: Lydia Pandey MD :1960 A ge:63 Y S ex:Female Date:05/06/2024 Address:[address] [place] [address] Subjective: * Chief Complaints: * 1 . [facility] Weight [facility], on Tirzepatide, no side effects, meeting calorie. adequate appetite suppression, reports adequate protein intake, encouraged increased fluid intake. 2. Desired weight loss: goal wt 135 lbs, -0.6 lbs since last visit, -25.3 lbs total. 3. No history MTC or [...] orally once a day , Taking Ipratropium [place] 21 MCG/INH SPRAY 2 SPRAY(S) INTRANASALLY 3 TIMES A DAY , Notes to Pharmacist: *Please review and pick correct strength-formulation from Medispan options. If intended option is not shown, discontinue and re-order from Quick Search*, Taking Simvastatin 20 MG Tablet 1 tab(s) orally once a day (in the evening) Objective: * Vitals: H t: 67 in, Wt: 140.6 lbs, BMI:22.02Index. Assessment: * Assessment: 1. A bnormal weight [...] mg R oute S Q L ocation L eft abdomen F requency w eekly L ot Number/Expiration M edication Source A H [employer]ounding A dverse Reaction N one * Follow Up: 1 Week (Reason: GLP-1 Agonist Administration) * Billing Information: * Visit Code: * Procedure Codes: * Electronic signature of Sil Pandey MD, FAAAAI on 04/15/2025 at 06:22 PM CDT Sign off status: Pending * Provider: Lydia Pandey MD Date: 07/06/2023 Generated for Teresai ethan/Nav/eTmarilyn on: 06:22 PM CDT
--- OUTSIDE RECORDS SUMMARY | 2024-05-13 06:00 | XMS_ITS ---
Author Organization [facility] ([address]) Address [address] [place] [address] Care Team Providers Care Reeling Machine Setup Operator Name Role Phone Kendrick Pandey Unavailable [phone] REASON FOR VISIT [facility] Weight Loss, on Tirzepatide, no side effects, meeting calorie. adequate appetite suppression, reports adequate protein intake, encouraged increased fluid intake, Desired weight loss: goal wt 135 lbs, -3.6 lbs since last visit, -28.9 lbs total, No history MTC or MEN2 or pancreatitis, Concerned about future DM and OA Medications Medication SIG (Take, Route, Frequency, Duration) Notes Start Date End Date Status Montelukast Sodium 10 MG 1 tab(s) orally once a day Active Ipratropium [place] 21 MCG/INH 2 SPRAY(S) INTRANASALLY 3 TIMES A DAY *Please review and pick correct strength-formulatio n from [employer]pan options. If intended option is not shown, discontinue and re-order from Quick Search* Active Align 4 MG 1 cap(s) orally once a day Active Simvastatin 20 MG 1 tab(s) orally once a day (in the evening) Active Zolpidem Tartrate ER 12.5 MG 1 tab(s) orally once a day (at bedtime) Active Claritin 10 MG 1 tab(s) orally once a day Active Restasis 0.05 % 1 gtt in each affected eye every 12 hours Active Vital Signs Height 67 in 05/13/2024 Weight 137.0 lbs 05/13/2024 BMI 21.45 kg/m2 05/13/2024 Encounters Encounter Location Date Provider Diagnosis [facility] ([address]) [address] [place] [address] 05/13/2024 Kendrick Pandey Chronic fatigue, unspecified R53.82 ; Abnormal weight gain R63.5 ; Other fatigue R53.83 and Other malaise R53.81 Assessments Encounter Date Diagnosis (ICD Code) Assessment Notes Treatment Notes Treatment Clinical Notes Section Notes 05/13/2024 Chronic fatigue, unspecified (ICD-10 - R53.82) 05/13/2024 Abnormal weight gain (ICD-10 - R63.5) 05/13/2024 Other fatigue (ICD-10 - R53.83) 05/13/2024 Other malaise (ICD-10 - R53.81) Plan Of Treatment Next Appt Details Follow Up: 1 Week, Reason: G LP-1 Agonist Administration Procedure Notes * Category Sub-Category Detail Notes [facility]ell: Weight Management tirzepatide Indication: weig ht loss Concentration: 10 mg/mL Volume Administered: 0.3 mL Dose Administered: 3 mg Route: SQ Location: Right abdomen Frequency: weekly Lot Number/Expiration: Medication Source: [place] Adverse Reaction: None Progress Notes * Emma YOUNGDOB:1960 (64 yo F)Acc No.[id number]:05/13/2024 Weight Loss Patient: Emma PENA Provider: Lydia Pandey MD :1960 A ge:63 Y S ex:Female Date:05/13/2024 Address:[address] [place] [address] Subjective: * Chief Complaints: * 1 . [facility] Weight Loss, on Tirzepatide, no side effects, meeting calorie. adequate appetite suppression, reports adequate protein intake, encouraged increased fluid intake. 2. Desired weight loss: goal wt 135 lbs, -3.6 lbs since last visit, -28.9 lbs total. 3. No history MTC or [...] orally once a day , Taking Ipratropium [place] 21 MCG/INH SPRAY 2 SPRAY(S) INTRANASALLY 3 TIMES A DAY , Notes to Pharmacist: *Please review and pick correct strength-formulation from Medispan options. If intended option is not shown, discontinue and re-order from Quick Search*, Taking Simvastatin 20 MG Tablet 1 tab(s) orally once a day (in the evening) Objective: * Vitals: H t: 67 in, Wt: 137.0 lbs, BMI:21.45Index. Assessment: * Assessment: 1. A bnormal weight [...] eekly L ot Number/Expiration M edication Source H [facility] A dverse Reaction N one * Follow Up: 1 Week (Reason: GLP-1 Agonist Administration) * Billing Information: * Visit Code: * Procedure Codes: * Electronic signature of Sil Pandey MD, FAAAAI on 04/15/2025 at 06:25 PM CDT Sign off status: Pending * Provider: Lydia Pandey MD Date: 07/13/2023 Generated for Teresai ethan/Nav/eTransmemeterio on: 06:25 PM CDT
--- OUTSIDE RECORDS SUMMARY | 2024-05-20 06:00 | XMS_ITS ---
Author Organization [facility] [employer] [facility] ([address]) Address [address] [place] [address] Care Team Providers Care Crusher Supervisor Name Role Phone Kendrick Pandey Unavailable [phone] REASON FOR VISIT [facility] Weight Loss, on Tirzepatide, no side effects, meeting calorie. adequate appetite suppression, reports adequate protein intake, encouraged increased fluid intake, Desired weight loss: goal wt 135 lbs, -3.7 lbs since last visit, -32.6 lbs total, No history MTC or MEN2 or pancreatitis, Concerned about future DM and OA Medications Medication SIG (Take, Route, Frequency, Duration) Notes Start Date End Date Status Simvastatin 20 MG 1 tab(s) orally once a day (in the evening) Active Montelukast Sodium 10 MG 1 tab(s) orally once a day Active Ipratropium [place] 21 MCG/INH 2 SPRAY(S) INTRANASALLY 3 TIMES A DAY *Please review and pick correct strength-formulatio n from Medispan options. If intended option is not shown, discontinue and re-order from Quick Search* Active Claritin 10 MG 1 tab(s) orally once a day Active Align 4 MG 1 cap(s) orally once a day Active Restasis 0.05 % 1 gtt in each affected eye every 12 hours Active Zolpidem Tartrate ER 12.5 MG 1 tab(s) orally once a day (at bedtime) Active Vital Signs Height 67 in 05/20/2024 Weight 133.3 lbs 05/20/2024 BMI 20.88 kg/m2 05/20/2024 Encounters Encounter Location Date Provider Diagnosis [facility] [employer] ([address]) [address] [place] [address] 05/20/2024 Kendrick Pandey Chronic fatigue, unspecified R53.82 ; Abnormal weight gain R63.5 ; Other fatigue R53.83 and Other malaise R53.81 Assessments Encounter Date Diagnosis (ICD Code) Assessment Notes Treatment Notes Treatment Clinical Notes Section Notes 05/20/2024 Chronic fatigue, unspecified (ICD-10 - R53.82) 05/20/2024 Abnormal weight gain (ICD-10 - R63.5) 05/20/2024 Other fatigue (ICD-10 - R53.83) 05/20/2024 Other malaise (ICD-10 - R53.81) Plan Of Treatment Next Appt Details Follow Up: 1 Week, Reason: G LP-1 Agonist Administration Procedure Notes * Category Sub-Category Detail Notes Quell: Weight Management tirzepatide Indication: weig ht loss Concentration: 10 mg/mL Volume Administered: 0.3 mL Dose Administered: 3 mg Route: SQ Location: Right abdomen Frequency: weekly Lot Number/Expiration: Medication Source: [employer] Adverse Reaction: None Progress Notes * Emma YOUNGDOB:1960 (64 yo F)Acc No.[id number]:05/20/2024 Weight Loss Patient: Emma PENA Provider: Lydia Pandey MD :1960 A ge:63 Y S ex:Female Date:05/20/2024 Address:[address] [place] [address] Subjective: * Chief Complaints: * 1 . [facility] Weight Loss, on Tirzepatide, no side effects, meeting calorie. adequate appetite suppression, reports adequate protein intake, encouraged increased fluid intake. 2. Desired weight loss: goal wt 135 lbs, -3.7 lbs since last visit, -32.6 lbs total. 3. No history MTC or [...] orally once a day , Taking Ipratropium [place] 21 MCG/INH SPRAY 2 SPRAY(S) INTRANASALLY 3 TIMES A DAY , Notes to Pharmacist: *Please review and pick correct strength-formulation from Medispan options. If intended option is not shown, discontinue and re-order from Quick Search*, Taking Simvastatin 20 MG Tablet 1 tab(s) orally once a day (in the evening) Objective: * Vitals: H t: 67 in, Wt: 133.3 lbs, BMI:20.88Index. Assessment: * Assessment: 1. A bnormal weight [...] F requency w eekly L ot Number/Expiration 0 M edication Source H [facility] A dverse Reaction N one * Follow Up: 1 Week (Reason: GLP-1 Agonist Administration) * Billing Information: * Visit Code: * Procedure Codes: * Electronic signature of Sil Pandey MD, FAAAAI on 04/15/2025 at 06:22 PM CDT Sign off status: Pending * Provider: Lydia Pandey MD Date: 07/20/2023 Generated for Teresai ethan/Nav/eTransmemeterio on: 06:22 PM CDT
--- OUTSIDE RECORDS SUMMARY | 2024-05-20 06:00 | XMS_ITS ---
Author Organization [facility] Address [address] [place] [address] Care Team Providers Care Pre Billing Clinician Name Role Phone Kendrick Pandey Unavailable [phone] REASON FOR VISIT [facility] Follow-up, 7% skeletal muscle mass lost since starting the program, no new concerns Medications Medication SIG (Take, Route, Frequency, Duration) Notes Start Date End Date Status Ipratropium [place] 21 MCG/INH 2 SPRAY(S) INTRANASALLY 3 TIMES A DAY *Please review and pick correct strength-formulatio n from FUJIAN HAIYUANspan options. If intended option is not shown, discontinue and re-order from Quick Search* Active Montelukast Sodium 10 MG 1 tab(s) orally once a day Active Claritin 10 MG 1 tab(s) orally once a day Active Restasis 0.05 % 1 gtt in each affected eye every 12 hours Active Simvastatin 20 MG 1 tab(s) orally once a day (in the evening) Active Zolpidem Tartrate ER 12.5 MG 1 tab(s) orally once a day (at bedtime) Active Align 4 MG 1 cap(s) orally once a day Active Encounters Encounter Location Date Provider Diagnosis [facility] ([address]) [address] [place] [address] 05/20/2024 Kendrick Pandey Plan Of Treatment No Information Progress Notes * Emma YOUNGDOB:1960 (64 yo F)Acc No.[id number]:05/20/2024 InBody Follow-up Patient: Sang PLUMMER Emma Provider: Lydia Pandey MD :1960 A ge:63 Y S ex:Female Date:05/20/2024 [id number] Subjective: * Chief Complaints: * 1 . [facility] Follow-up, 7% skeletal muscle mass lost since starting the program, no new concerns. * Medical History: * Medications: T aking [...] orally once a day , Taking Ipratropium [place] 21 MCG/INH SPRAY 2 SPRAY(S) INTRANASALLY 3 TIMES A DAY , Notes to Pharmacist: *Please review and pick correct strength-formulation from Medispan options. If intended option is not shown, discontinue and re-order from Quick Search*, Taking Simvastatin 20 MG Tablet 1 tab(s) orally once a day (in the evening) Objective: * Vitals: Assessment: Plan: * Treatment: * Billing Information: * Visit Code: * Procedure Codes: * Electronic signature of Sil Pandey MD, FAAAAI on 04/15/2025 at 06:25 PM CDT Sign off status: Pending * Provider: Lydia Pandey MD Date: 07/20/2023 Generated for Eli long/Nav/Armand on: 06:25 PM CDT
--- OUTSIDE RECORDS SUMMARY | 2024-06-03 12:30 | XMS_ITS ---
Author Organization [facility] ([address]) Address [address] [place] [address] Care Team Providers Care Fabric And Textile Factory Worker Name Role Phone Kendrick Pandey [phone] REASON FOR VISIT Tirzepatide follow-up Encounters Encounter Location Date Provider Diagnosis [facility] ([address]) [address] [place] [address] 06/03/2024 Kendrick Pandey Plan Of Treatment No Information Progress Notes * HANNAH, EmmaDOB:1960 (64 yo F)Acc No.[id number]:06/03/2024 Weight Loss Patient: Emma PENA Provider: Lydia Pandey MD :1960 A ge:63 Y S ex:Female Date:06/03/2024 Address:[address] [place], [place] [id number] Subjective: * Chief Complaints: * 1 . Tirzepatide follow-up. * Medical History: Objective: * Vitals: Assessment: Plan: * Treatment: * Billing Information: * Visit Code: * Procedure Codes: * Electronic signature of Sil Pandey MD, FAAAAI on 04/15/2025 at 06:22 PM CDT Sign off status: Pending * Provider: Lydia Pandey MD Date: 1 08/04/2023 Generated for Printi ng/Faxing/eTransmitting on: 1 06:22 PM CDT
--- OUTSIDE RECORDS SUMMARY | 2024-06-10 12:30 | XMS_ITS ---
Author Organization [facility] [place] ([address]) Address [address] [place] [phone] Care Team Providers Care Account Coordinator Name Role Phone Opal Pandeyrick Joe [phone] REASON FOR VISIT [facility], on Tirzepatide, no side effects, meeting calorie. adequate appetite suppression, reports adequate protein intake, encouraged increased fluid intake, Desired weight loss: goal wt 135 lbs, -3.7 lbs since last visit, -32.6 lbs total, No history MTC or MEN2 or pancreatitis, Concerned about future DM and OA Encounters Encounter Location Date Provider Diagnosis [facility] ([address]) [address] [place] [phone] 06/10/2024 Kendrick Pandey Chronic fatigue, unspecified R53.82 ; Abnormal weight gain R63.5 ; Other fatigue R53.83 and Other malaise R53.81 Assessments Encounter Date Diagnosis (ICD Code) Assessment Notes Treatment Notes Treatment Clinical Notes Section Notes 06/10/2024 Chronic fatigue, unspecified (ICD-10 - R53.82) 06/10/2024 Abnormal weight gain (ICD-10 - R63.5) 06/10/2024 Other fatigue (ICD-10 - R53.83) 06/10/2024 Other malaise (ICD-10 - R53.81) Plan Of Treatment Next Appt Details Follow Up: 1 Week, Reason: G LP-1 Agonist Administration Procedure Notes * Category Sub-Category Detail Notes [facility]: Weight Management tirzepatide Indication: weig ht loss Concentration: 10 mg/mL Volume Administered: 0.3 mL Dose Administered: 3 mg Route: SQ Location: Right abdomen Frequency: weekly Lot Number/Expiration: Medication Source: Oobafit Adverse Reaction: None Progress Notes * Emma YOUNGDOB:1960 (64 yo F)Acc No.[id number]:06/10/2024 Weight Loss Patient: Emma PENA Provider: Lydia Pandey MD :1960 A ge:63 Y S ex:Female Date:06/10/2024 Address:[address] [place] [address] Subjective: * Chief Complaints: * 1 . [facility], on Tirzepatide, no side effects, meeting calorie. adequate appetite suppression, reports adequate protein intake, encouraged increased fluid intake. 2. Desired weight loss: goal wt 135 lbs, -3.7 lbs since last visit, -32.6 lbs total. 3. No history MTC or MEN2 or pancreatitis. 4. Concerned about future DM and OA. * Medical History: Objective: * Vitals: Assessment: * Assessment: 1. A bnormal weight [...] ot Number/Expiration 0 M edication Source H VendRx A dverse Reaction N one * Follow Up: 1 Week (Reason: GLP-1 Agonist Administration) * Billing Information: * Visit Code: * Procedure Codes: * Electronic signature of Sil Pandey MD, FAAAAI on 04/15/2025 at 06:26 PM CDT Sign off status: Pending * Provider: Lydia Pandey MD Date: 1 08/11/2023 Generated for Printi ng/Faxing/eTransmitting on: 06:26 PM CDT
--- OUTSIDE RECORDS SUMMARY | 2025-03-10 12:30 | XMS_ITS ---
Author Organization [facility] [place] ([address]) Address [address] [place] [phone] Care Team Providers Care Torpedo Worker Name Role Phone Kendrick Pandey [phone] REASON FOR VISIT Tirzepatide follow-up, [facility] Weight [facility], on Tirzepatide, no side effects, meeting calorie.adequate appetite suppression, reports adequate protein intake, encouraged increased fluid intake, Desired weight loss: goal wt 135 lbs, -3.7 lbs since last visit, -32.6 lbs total, No history MTC or MEN2 or pancreatitis, Concerned about future DM and OA Encounters Encounter Location Date Provider Diagnosis [facility] [place] ([address]) [address] [place] [phone] 03/10/2025 Kendrick Pandey Chronic fatigue, unspecified R53.82 ; Abnormal weight gain R63.5 ; Other fatigue R53.83 and Other malaise R53.81 Assessments Encounter Date Diagnosis (ICD Code) Assessment Notes Treatment Notes Treatment Clinical Notes Section Notes 03/10/2025 Chronic fatigue, unspecified (ICD-10 - R53.82) 03/10/2025 Abnormal weight gain (ICD-10 - R63.5) 03/10/2025 Other fatigue (ICD-10 - R53.83) 03/10/2025 Other malaise (ICD-10 - R53.81) Plan Of [...] Notes * Emma YOUNGDOB:1960 (64 yo F)Acc No.[id number]:03/10/2025 Weight Loss Patient: Emma PENA Provider: Lydia Pandey MD :1960 A ge:64 Y S ex:Female Date:03/10/2025 Address:[address] [place], [place] [address] Subjective: * Chief Complaints: * 1 . Tirzepatide follow-up. 2. [facility], on Tirzepatide, no side effects, meeting calorie. adequate appetite suppression, reports adequate protein intake, encouraged increased fluid intake. 3. Desired weight loss: goal wt 135 lbs, -3.7 lbs since last visit, -32.6 lbs total. 4. No history MTC or MEN2 or pancreatitis. 5. Concerned about future DM and OA. * [...] F requency w eekly L ot Number/Expiration 1 M edication Source A H [employer] A dverse Reaction N one * Follow Up: 1 Week (Reason: GLP-1 Agonist Administration) * Billing Information: * Visit Code: * Procedure Codes: 51231 [facility] - Weekly (tirzepatide) (0.5-5 mg) Tier 1. * Electronic signature of Sil Pandey MD, FAAAAI on 04/15/2025 at 06:25 PM CDT Sign off status: Pending * Provider: Lydia Pandey MD Date: 0 03/10/2025 Generated for Eli long/Nav/Armand on: 1 06:25 PM CDT
--- OUTSIDE RECORDS SUMMARY | 2025-03-10 12:30 | XMS_ITS ---
Author Organization [facility] ([address]) Address [address] [place] [phone] Care Team Providers Care Director Of Enrollment Name Role Phone Kendrick Pandey [phone] REASON FOR VISIT [facility] Follow-up Encounters Encounter Location Date Provider Diagnosis [facility] ([address]) [address] [place] [phone] 03/10/2025 Kendrick Pandey Plan Of Treatment No Information Progress Notes * HANNAH, EmmaDOB:1960 (64 yo F)Acc No.[id number]:03/10/2025 [facility] Follow-up Patient: Emma PENA Provider: Lydia Pandey MD :1960 A ge:64 Y S ex:Female Date:03/10/2025 Address:[address] [place], [place] [id number] Subjective: * Chief Complaints: * 1 . [facility] Follow-up. * Medical History: Objective: * Vitals: Assessment: Plan: * Treatment: * Billing Information: * Visit Code: * Procedure Codes: * Electronic signature of Sil Pandey MD, FAAAAI on 04/15/2025 at 06:23 PM CDT Sign off status: Pending * Provider: Lydia Pandey MD Date: 0 03/10/2025 Generated for Printi ng/Faxing/eTransmitting on: 1 06:23 PM CDT
--- NOTE | ~2025-04-15 | MM_ITS ---
EXAMINATION: MM scrn james implant BI w jack INDICATION: Asymptomatic, referred for screening mammogram COMPARISON: 04/04/2024 through 02/17/2020 TECHNIQUE: Digital Breast Tomosynthesis CC, MLO, and implant displaced CC and MLO views of Both breasts were obtained with computer-aided detection to assist in interpretation of the study. FINDINGS: The breasts are heterogeneously dense, which may obscure small masses. Bilateral breast Retropectoral Saline implants in place appears intact. No focal dominant mass, architectural distortion, or suspicious microcalcifications are identified. There are no features to suggest malignancy. IMPRESSION: 1. No evidence of malignancy in the breasts. 2. Both breasts Retropectoral Saline implants appears intact. Recommend continued screening mammography BI-RADS 1, NEGATIVE Reviewed, dictated and finalized at location B.
--- OUTSIDE RECORDS SUMMARY | 2025-04-15 18:22 | XMS_ITS | Clinical Summary ---
Author Organization [facility] Address [address] [place] [address] Phone Care Team Providers Care Crane Engineer Name Role Phone Esther Eason MD Primary Care Provider [phone] Allergies Active Allergy Reactions Criticality Noted Date Comments Ampicillin Unknown 11/25/2020 Morphine Unknown 11/25/2020 Penicillin Unknown 11/25/2020 Medications triamcinolone acetonide (NASACORT BOTH NOSTRIL) Administer in each nostril. Active cetirizine HCl (ZYRTEC ORAL) Take by mouth. A ctive Carboxymethylce llulose Sodium solution 2 Drops 2 times daily as needed. Active Active Problems No known active problems Family History Medical History Relation Name Comments Prostate Cancer Father Heart Disease Mother Heart Disease Sister Relation Name Status Comments Father Mother Sister Social History Tobacco Use Types Packs/Day Years Used Date Smoking Tobacco: Never Alcohol Use Standard Drinks/Week Comments Yes 0 (1 standard drink = 0.6 oz pur e alcohol) Socially Comments No Sex and Gender Information Value Date Recorded Sex Assigned at Not on file Legal Sex Female 2:49 PM CDT Gender Identity Not on file Sexual Orientation Not on file Last Filed Vital Signs Vital Sign Reading Time Taken Comments Blood Pressure 109/75 12/15/2020 1:09 PM CDT Pulse 77 12/15/2020 1:09 PM CDT Temperature 36.8 C (98.2 F) 12/15/2020 1:09 PM CDT Respiratory Rate - - Oxygen Saturation - - Inhaled Oxygen Concentration - - Weight 73 kg (161 lb) 12/15/2020 1:09 PM CDT Height 170.2 cm (5' 7) 12/15/2020 1:09 PM CDT Body Mass Index 25.22 12/15/2020 1:09 PM CDT Plan of Treatment Health Maintenance Due Date Last Done Comments DTAP/TDAP/TD VACCINES (1 - Tdap) 1980 HPV/Cotest (21-29) 1982 CERVICAL CANCER SCREENING 09/07/1991 HPV/Cotest (30-65) 09/07/1991 PAP SMEAR 09/07/1991 BREAST CANCER SCREENING 2001 COLORECTAL SCREENING 2006 Colorectal Cancer Screening 2006 FIT-DNA Q 3 years 2006 FIT/FOBT Q 1 year 2006 Flex Sig/CT Colonography Q 5 years 2006 ZOSTER VACCINE (1 of 2) 09/07/2011 INFLUENZA VACCINE (#1) 2025 COVID-19 Vaccine (3 - season) 02/23/202502/2021, 09/10/2020 RSV VACCINE (60+ or ) (1 - 1-dose 75+ series) 2036 Insurance [employer] [facility] OPEN ACCESS Care Teams Crane Engineer Relationship Specialty Start Date End Date Esther Eason MD [address] [place] [phone] PCP - General Family Practice 12/15/20
--- OUTSIDE RECORDS SUMMARY | 2025-04-15 18:23 | XMS_ITS | Encounter Summary ---
Author Organization [facility] Address [address] [facility] [place] [address] Care Team Providers Care Shrimp Peeling Machine Operator Name Role Phone Castillo Wright DO Primary Care Provider [phone] Encounter Details Date Type Department Care Team (Late st Contact Info) Description 10/02/2019 Lab Requisition [facility] Lab [address] [place] [address] Michael Shrestha MD [address] [place], [place] [id number] Social History Tobacco Use Types Packs/Day Years Used Date Smoking Tobacco: Never Assessed Comments Unknown Sex and Gender Information Value Date Recorded Sex Assigned at Not on file 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 Gender Identity Not on file Sexual Orientation Not on file documented as of this encounter Plan of Treatment Not on file documented as of this encounter Procedures Procedure Name Priority Date/Time Associated Diagnosis Comments DERMATOPATHOLOGY Routine 10/01/2019 12:0 0 AM CDT documented in this encounter Results * DERMATOPATHOLOGY (10/01/2019 12:00 AM CDT) Case Report Dermatopathology Report Case: [id number] Authorizing Provider: Michael Shrestha MD Collected: 10/01/2019 12:00 AM Ordering Location: [facility]erm[facility] Lab Received: 10/02/2019 11:52 AM Pathologist: Nika Morris MD Specimen: Skin, left dorsal hand proximal to MCP joint 0 12:03 PM CDT DERMATOPATHOLOGY LABORATORY Final Diagnosis Specimen A. SKIN, left dorsal hand proximal to MCP joint: ACTINIC KERATOSIS (L57.0) 0 12:03 PM CDT DERMATOPATHOLOGY LABORATORY at 1203 CDT Clinical History R/O BCC, ISK, other. 0 12:03 PM CDT DERMATOPATHOLOGY LABORATORY Gross Description Specimen A: Received is one formalin filled container labeled with the patient's name and designated left dorsal hand proximal to MCP joint. The specimen consists of a shave biopsy measuring 3m8y8mg. Jar 0. 0 12:03 PM CDT DERMATOPATHOLOGY LABORATORY Microscopic Description Specimen A. SKIN, left dorsal hand proximal to MCP joint: There is focal parakeratosis. The lower half of the epidermis shows disorderly maturation of keratinocytes with nuclear pleomorphism. 0 12:03 PM CDT DERMATOPATHOLOGY LABORATORY Disclaimer An external and internal positive and negative controls are appropriate for the histochemical, immunohistochemical and immunofluorescence stain(s) in this case (if any), except where stated explicitly. The performance characteristics of the stain(s) cited in this report were developed and its performance characteristic determined by the Dermatopathology Laboratory at [facility], directed by Dr. Joss Davalos. These tests need not be, and therefore are not, approved by the [place] Food and Drug Administration. The tests are used for clinical purposes. Billing Codes Specimen Charges Stain Charges 67402 1 0 12:03 PM CDT DERMATOPATHOLOGY LABORATORY Embedded Images 0 12:03 PM CDT DERMATOPATHOLOGY LABORATORY Pathology/Cytolog y TISSUE SPECIMEN FROM SKIN / Unknown 10/01/2019 10/02/2019 11:52 AM CDT Michael Shrestha MD LAB - PATHOLOGY/CYTOLOGY ORD ERABLES Final Result DERMATOPATHOLOGY LABORATORY [facility] - Department of Dermatology [facility] [facility], 5th [place] [address], [facility] [phone] documented in this encounter Visit Diagnoses Not on filedocumented in this encounter Care Teams Shrimp Peeling Machine Operator Relationship Specialty Start Date End Date Castillo Wright DO [address] [facility] [address] [place] [address] PCP - General 11/01/11 documented as of this encounter
--- OUTSIDE RECORDS SUMMARY | 2025-04-15 18:23 | XMS_ITS | Encounter Summary ---
Author Organization [facility] Address [address] [facility] [place] [place] [address] Care Team Providers Care Buckle Sewer Name Role Phone Castillo Wright DO Primary Care Provider Encounter Details Date Type Department Care Team (Late st Contact Info) Description 01/08/[address] [facility] DermPath Lab [address] [place] [address] Michael Shrestha MD [address] [place] [address] Social History Tobacco Use Types Packs/Day Years Used Date Smoking Tobacco: Never Assessed Comments Unknown Sex and Gender Information Value Date Recorded Sex Assigned at Not on file Legal Sex Female 5:40 PM IMPORT/EXPORT SPECIALIST Gender Identity Not on file Sexual Orientation Not on file documented as of this encounter Plan of Treatment Not on file documented as of this encounter Procedures Procedure Name Priority Date/Time Associated Diagnosis Comments DERMATOPATHOLOGY Routine 01/07/2020 12:0 0 AM CDT documented in this encounter Results * DERMATOPATHOLOGY (01/07/2020 12:00 AM CDT) Case Report Dermatopathology Report Case: [id number] Authorizing Provider: Michael Shrestha MD Collected: 01/07/2020 12:00 AM Ordering Location: [facility] DermPath Lab Received: 01/08/2020 12:58 PM Pathologist: Anna tSanford MD Specimens: A) - Skin, right lat elbow B) - Skin, left dorsal index finger MCP joint 0 5:31 PM CDT DERMATOPATHOLOGY LABORATORY Final Diagnosis Specimen A. SKIN, right lat elbow: HYPERPLASTIC (HYPERTROPHIC) ACTINIC KERATOSIS, INFLAMED (L57.0) (see microscopic description) Specimen B. SKIN, left dorsal index finger MCP joint: DERMAL SCAR (L90.5) (see microscopic description) 0 5:31 PM CDT DERMATOPATHOLOGY LABORATORY at 1731 CDT Clinical History A-B: R/O HAK, ISK, SCC, BCC. 0 5:31 PM CDT DERMATOPATHOLOGY LABORATORY Gross Description Specimen A: Received is one formalin filled container labeled with the patient's name and designated right lat elbow. The specimen consists of a shave biopsy measuring 23d26o5ll. Jar 0. Specimen B: Received is one formalin filled container labeled with the patient's name and designated left dorsal index finger MCP joint. The specimen consists of a shave biopsy measuring 5z5p8zj. Jar 0. 0 5:31 PM CDT DERMATOPATHOLOGY LABORATORY Microscopic Description Specimen A. SKIN, right lat elbow: There is hyperkeratosis alternating with parakeratosis. There is epidermal hyperplasia with disorderly maturation of keratinocytes with nuclear pleomorphism confined to the lower half of the epidermis. Inflammatory cells are present within the dermis. Specimen B. SKIN, left dorsal index finger MCP joint: There are fibroblasts and collagen bundles oriented parallel to the skin surface with elongated blood vessels, some of which are oriented perpendicular to the skin surface. There is no evidence of epithelial dysplasia or malignancy in multiple deeper sections examined. 0 5:31 PM CDT DERMATOPATHOLOGY LABORATORY Disclaimer An external and internal positive and negative controls are appropriate for the histochemical, immunohistochemical and immunofluorescence stain(s) in this case (if any), except where stated explicitly. The performance characteristics of the stain(s) cited in this report were developed and its performance characteristic determined by the Dermatopathology Laboratory at [facility], directed by Dr. Joss Davalos. These tests need not be, and therefore are not, approved by the [place] Food and Drug Administration. The tests are used for clinical purposes. Billing Codes Specimen Charges Stain Charges 72351 70936 1 1 0 5:31 PM CDT DERMATOPATHOLOGY LABORATORY Embedded Images 0 5:31 PM CDT DERMATOPATHOLOGY LABORATORY Pathology/Cytology TISSUE SPECIMEN FROM SKIN / Unknown 01/07/2020 01/08/2020 12:58 PM CDT Miscellaneous samples (specimen) TISSUE SPECIMEN FROM SKIN / Unknown 01/07/2020 01/08/2020 12:58 PM CDT Michael Shrestha MD LAB - PATHOLOGY/CYTOLOGY ORD ERABLES Final Result DERMATOPATHOLOGY LABORATORY [facility] - Department of Dermatology Rehab Assistant Diamond/[address] [phone] documented in this encounter Visit Diagnoses Not on filedocumented in this encounter Care Teams Buckle Sewer Relationship Specialty Start Date End Date Castillo Wright DO [address] [facility] [address] [facility] [address] [place] [address] PCP - General 11/01/11 documented as of this encounter
--- OUTSIDE RECORDS SUMMARY | 2025-04-15 18:25 | XMS_ITS | Encounter Summary ---
Author Organization [facility] Address [address] [facility] [place] [address] Care Team Providers Care Librarian Name Role Phone Castillo Wright DO Primary Care Provider [phone] Encounter Details Date Type Department Care Team (Late st Contact Info) Description 03/31/2020 Lab Requisition [facility] DermPath Lab [address] [place] [address] Michael Shreshta MD [address] [place], [place] [id number] Social History Tobacco Use Types Packs/Day Years Used Date Smoking Tobacco: Never Assessed Comments Unknown Sex and Gender Information Value Date Recorded Sex Assigned at Not on file Legal 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 Gender Identity Not on file Sexual Orientation Not on file documented as of this encounter Plan of Treatment Not on file documented as of this encounter Procedures Procedure Name Priority Date/Time Associated Diagnosis Comments DERMATOPATHOLOGY Routine 03/30/2020 12:0 0 AM CDT documented in this encounter Results * DERMATOPATHOLOGY (03/30/2020 12:00 AM CDT) Case Report Dermatopathology Report Case: [id number] Authorizing Provider: Michael Shrestha MD Collected: 03/30/2020 12:00 AM Ordering Location: [facility] DermPath Lab Received: 03/31/2020 01:24 PM Pathologist: Anna Stanford MD Specimen: Skin, dorsal left middle finger mcp 0 2:06 PM CDT DERMATOPATHOLOGY LABORATORY Final Diagnosis Specimen A. SKIN, dorsal left middle finger mcp: HYPERPLASTIC (HYPERTROPHIC) ACTINIC KERATOSIS (L57.0) DERMAL SCAR (L90.5) 0 2:06 PM CDT DERMATOPATHOLOGY LABORATORY at 1406 CDT Clinical History R/O SCC, BCC 0 2:06 PM CDT DERMATOPATHOLOGY LABORATORY Gross Description Specimen A: Received is one formalin filled container labeled with the patient's name and designated dorsal left middle finger mcp. The specimen consists of a shave biopsy measuring 9x6x1 mm. Jar 0. 0 2:06 PM CDT DERMATOPATHOLOGY LABORATORY Microscopic Description Specimen A. SKIN, dorsal left middle finger mcp: There is hyperkeratosis alternating with parakeratosis. There is epidermal hyperplasia with disorderly maturation of keratinocytes with nuclear pleomorphism confined to the lower half of the epidermis. There are adjacent and underlying fibroblasts and collagen bundles oriented parallel to the skin surface with elongated blood vessels, some of which are oriented perpendicular to the skin surface. 0 2:06 PM CDT DERMATOPATHOLOGY LABORATORY Disclaimer An external and internal positive and negative controls are appropriate for the histochemical, immunohistochemical and immunofluorescence stain(s) in this case (if any), except where stated explicitly. The performance characteristics of the stain(s) cited in this report were developed and its performance characteristic determined by the Dermatopathology Laboratory at [facility], directed by Dr. Joss Davalos. These tests need not be, and therefore are not, approved by the [place] Food and Drug Administration. The tests are used for clinical purposes. Billing Codes Specimen Charges Stain Charges 87583 1 0 2:06 PM CDT DERMATOPATHOLOGY LABORATORY Embedded Images 0 2:06 PM CDT DERMATOPATHOLOGY LABORATORY Pathology/Cytolog y TISSUE SPECIMEN FROM SKIN / Unknown 03/30/2020 03/31/2020 1:24 PM CDT us Michael Shrestha MD LAB - PATHOLOGY/CYTOLOGY ORD ERABLES Final Result DERMATOPATHOLOGY LABORATORY [facility] - Department of Dermatology [address] [place] [address], [facility] [phone] documented in this encounter Visit Diagnoses Not on filedocumented in this encounter Care Teams Librarian Relationship Specialty Start Date End Date Castillo Wright DO [address] [facility] [address] [place] [address] PCP - General 11/01/11 documented as of this encounter
--- OUTSIDE RECORDS SUMMARY | 2025-04-15 18:25 | XMS_ITS | Clinical Summary ---
Author Organization [facility] [employer] Address [address] [place] [address] Care Team Providers Care Mold Machine Operator Name Role Phone Castillo Wright DO Primary Care Provider [phone] Source Comments [facility] [employer],non-owned Affiliates and Associated Physician Practices is amultiple site organization consisting of ambulatory clinics and hospital sitesin [place], [place], [place] and [place]. This disclosure is being madepursuant to the Care Everywhere program and may not contain all information available regarding this patient. 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 Gender Identity Not on file Sexual Orientation Not on file Plan of Treatment Health Maintenance Due Date Last Done Comments COLOGUARD (AGES 45-75) - COL ON CA SCREENING 1960 COLON MONITORING 1961 COLONOSCOPY - COLON CA SCREENING 1961 CT COLONOGRAPHY - COLON CA SCREENING 1960 Colorectal Cancer Screening 1960 FIT - COLON CA SCREENING 1961 FLEX SIG - COLON CA SCREENING 1960 LIPID TESTING 1960 MAMMOGRAM 1961 HIV SCREENING 1976 HEPATITIS C SCREENING 09/02/1979 DTAP/TDAP/TD VACCINES (1 - Tdap) 1980 PNEUMOCOCCAL VACCINE 50+ (1 of 1 - PCV) 09/07/2011 ZOSTER VACCINE (1 of 2) 09/07/2011 DEPRESSION SCREENING 06/25/2024 COVID-19 VACCINE (1 - 2023-2 5 season) 2025 INFLUENZA VACCINE (#1) 2025 Respiratory Syncytial Virus (RSV) Vaccine Pt: or over 60 yrs (1 - 1-dose 75+ series) 2036 HEPATITIS B VACCINE Aged Out No longe r eligible based on patient's age to complete this topic HIB VACCINE Aged Out No longer eligi ble based on patient's age to complete this topic HPV VACCINE Aged Out No longer eligi ble based on patient's age to complete this topic MENINGOCOCCAL (Group B) VACC INE SHARED DECISION-MAKING Aged Out No longer eligibl e based on patient's age to complete this topic MENINGOCOCCAL GROUPS A/C/Y/W VACCINE Aged Out No longer eligible b ased on patient's age to complete this topic Insurance [email or web address] Care Teams Mold Machine Operator Relationship Specialty Start Date End Date Castillo Wright DO [address] [facility] [address] [place] [address] PCP - General 11/01/11
--- OUTSIDE RECORDS SUMMARY | 2025-04-15 18:25 | XMS_ITS | Patient Health Record ---
Author Organization [facility] [employer] [place] ([address]) Address [address] [place] [phone] Care Team Providers Care [facility] Receiving Clerk Name Role Phone Kendrick Pandey Unavailable [phone] Reason For Referral No Information Medications Medication SIG (Take, Route, Frequency, Duration) Notes Start Date End Date Status Ipratropium Martin 21 MCG/INH 2 SPRAY(S) INTRANASALLY 3 TIMES A DAY *Please review and pick correct strength-formulatio n from [employer] options. If intended option is not shown, [...] once a day (in the evening) Active Problems Problem Type SNOMED Code ICD Code Onset Dates Problem Status W/U Status Risk Notes Problem Chronic fatigue syndrome (disorder) (05620593) Chronic fatigue, unspecified (R53.82) Active confirmed Vital Signs Height 67 in 05/20/2024 Weight 133.3 lbs 05/20/2024 BMI 20.88 kg/m2 05/20/2024 Encounters Encounter Location Date Provider Diagnosis [facility] [place] [employer] [facility] ([address]) [address] [place] [phone] 05/20/2024 Kendrick Pandey Chronic fatigue, unspecified R53.82 ; Abnormal weight gain R63.5 ; Other fatigue R53.83 and Other malaise R53.81 Formerly [facility] [place] ([address]) [address] [place] [address] 05/13/2024 Kendrick Pandey Chronic fatigue, unspecified R53.82 ; Abnormal weight gain R63.5 ; Other fatigue R53.83 and Other malaise R53.81 [facility] ([address]) [address] [place] [address] 05/06/2024 Kendrick Pandey Chronic fatigue, unspecified R53.82 ; Abnormal weight gain R63.5 ; Other fatigue R53.83 and Other malaise R53.81 [facility] [place] [facility] ([address]) [address] [place] [phone] 04/29/2024 Kendrick Pandey Chronic fatigue, unspecified R53.82 ; Abnormal weight gain R63.5 ; Other fatigue R53.83 and Other malaise R53.81 [facility] [place] ([address]) [address] [place] [phone] 04/22/2024 Kendrick Pandey Chronic fatigue, unspecified R53.82 ; Abnormal weight gain R63.5 ; Other fatigue R53.83 and Other malaise R53.81 [facility] ([address]) [address] [place] [address] 04/15/2024 Kendrick Pandey Chronic fatigue, unspecified R53.82 ; Abnormal weight gain R63.5 ; Other fatigue R53.83 and Other malaise R53.81 [facility] [place] [facility] ([address]) [address] [place] [phone] 05/20/2024 Kendrick Pandey Assessments Encounter Date Diagnosis (ICD Code) Assessment Notes Treatment Notes Treatment Clinical Notes Section Notes 04/15/2024 Chronic fatigue, unspecified (ICD-10 - R53.82) 04/15/2024 Abnormal weight gain (ICD-10 - R63.5) 04/22/2024 Chronic fatigue, unspecified (ICD-10 - R53.82) 04/22/2024 Abnormal weight gain (ICD-10 - R63.5) 04/29/2024 Chronic fatigue, unspecified (ICD-10 - R53.82) 04/29/2024 Abnormal weight gain (ICD-10 - R63.5) 05/06/2024 Chronic fatigue, unspecified (ICD-10 - R53.82) 05/06/2024 Abnormal weight gain (ICD-10 - R63.5) 05/13/2024 Chronic fatigue, unspecified (ICD-10 - R53.82) 05/13/2024 Abnormal weight gain (ICD-10 - R63.5) 05/20/2024 Chronic fatigue, unspecified (ICD-10 - R53.82) 05/20/2024 Abnormal weight gain (ICD-10 - R63.5) 05/20/2024 Other fatigue (ICD-10 - R53.83) 05/13/2024 Other fatigue (ICD-10 - R53.83) 05/06/2024 Other fatigue (ICD-10 - R53.83) 04/29/2024 Other fatigue (ICD-10 - R53.83) 04/22/2024 Other fatigue (ICD-10 - R53.83) 04/15/2024 Other fatigue (ICD-10 - R53.83) 04/15/2024 Other malaise (ICD-10 - R53.81) 04/22/2024 Other malaise (ICD-10 - R53.81) 04/29/2024 Other malaise (ICD-10 - R53.81) 05/06/2024 Other malaise (ICD-10 - R53.81) 05/13/2024 Other malaise (ICD-10 - R53.81) 05/20/2024 Other malaise (ICD-10 - R53.81) Plan Of Treatment No Information
--- OUTSIDE RECORDS SUMMARY | 2025-04-15 18:26 | XMS_ITS | Clinical Summary ---
Author Organization [facility] Address [facility] [place] [address] Care Team Providers Care Side Hemmer Name Role Phone Esther Eason MD Primary Care Provider [phone] Allergies Active Allergy Reactions Criticality Noted Date Comments Ampicillin Hives,Itching Medium 11/17/2020 Morphine Hives,Itching Medium 11/17/2020 Opioids - Morphine Analogues Nausea & Vomiting Low Penicillins Hives,Itching Medium Medications cetirizine (ZyrTEC) 10 mg tablet Take 10 mg by mouth daily Active azelastine (ASTELIN) 137 mcg (0.1 %) nasal spray Administer 1 spray into each nostril 2 (two) times a day Use in each nostril as directed Active carboxymethylce llulose (REFRESH TEARS) 0.5 % ophthalmic solution Administer 1 drop into both eyes 2 (two) times a day Active gabapentin (NEURONTIN) 300 mg capsule Take 1 capsule (300 mg total) by mouth 3 (three) times a day 90 capsule 11 1 Active triamcinolone (NASACORT) 55 mcg nasal inhaler Administer 2 sprays into each nostril daily Active propylene glycoL (Systane Balance) 0.6 % drops Administer 1 drop into affected eye(s) as needed Active valACYclovir (VALTREX) 500 mg tablet Take 500 mg by mouth daily as needed 1 Active zolpidem CR (AMBIEN CR) 12.5 mg CR tablet Take 12.5 mg by mouth nightly 1 Active Active Problems Problem Noted Date Diagnosed Date Intervertebral disc disorder with radiculopathy of lumbar region 11/17/2020 Gastroesophageal reflux disease without esophagi tis 02/13/2020 Overview (02/13/2020): Added automatically from request for surgery [id number] Skin neoplasm 12/04/2012 Keratosis, senilis 12/04/2012 Lentigo 12/04/2012 Pain of foot 06/10/2012 Immunizations Immunization Administration Dates Next Due Hep A, Adult 04/03/2000,08/18/1999 Influenza, Unspecified 02/24/2020 Pfizer SARS-CoV-2 Monovalent Vaccination (12+ Yrs) PURPLE 10/01/2020,09/10/2020 Surgical History Surgery Date Site/Laterality Comments UPPER GASTROINTESTINAL ENDOSCOPY AUGMENTATION MAMMOPLASTY 06/25/2009 - 06/24/2010 FOOT SURGERY TUBAL LIGATION 06/25/1987 - 06/24/1988 TOE SURGERY 06/25/1997 - 06/24/1998 TRANSUMBILICAL AUGMENTATION MAMMAPLASTY 06/25/2009 - 06/24/2010 Medical History Medical History Date Comments Depression Regurgitation of food Chronic constipation Allergic rhinitis GERD (gastroesophageal reflux disease) Lumbar stenosis Allergies Dry eye syndrome Family History Medical History Relation Name Comments COPD Father Early Father Prostate cancer Father Early Maternal Grandfather Heart disease Maternal Grandfather Diabetes Maternal Grandmother Heart disease Maternal Grandmother Heart disease Mother Cancer Paternal Grandfather COPD Paternal Grandmother Heart disease Sister Relation Name Status Comments Father Maternal Grandfather Maternal Grandmother Mother Paternal Grandfather Paternal Grandmother Sister Social History Tobacco Use Types Packs/Day Years Used Date Smoking Tobacco: Never Smokeless Tobacco: Never Tobacco Cessation:Counseling Given: No Personal Safety Answer Date Recorded Getting School Help Needed Not on file 09/07 Comments No Sex and Gender Information Value Date Recorded Sex Assigned at Not on file Legal Sex Female 1:03 PM [employer] Gender Identity Not on file Sexual Orientation Not on file Obstetrics History Last Filed Vital Signs Vital Sign Reading Time Taken Comments Blood Pressure 123/80 11/17/2020 12:27 PM CDT Pulse 86 11/17/2020 12:27 PM CDT Temperature 36.9 C (98.4 F) 04/09/2020 2:07 PM CDT Respiratory Rate 18 05/27/2020 1:03 PM [employer] Oxygen Saturation 98% 03/12/2020 12:55 PM CDT Inhaled Oxygen Concentration - - Weight 71.2 kg (157 lb) 11/17/2020 12:27 PM CDT Height 172.7 cm (5' 8) 11/17/2020 12:27 PM CDT Body Mass Index 23.87 11/17/2020 12:27 PM CDT Plan of Treatment Health Maintenance Due Date Last Done Comments Breast Cancer Screening-Mammogram 1961 Cervical Cancer Screening 1961 Colon Cancer Screening-Colonoscopy 1961 Depression Screening 1961 Hepatitis C Screening 1961 DTaP/Tdap/Td Vaccine (1 - Tdap) 1972 Hepatitis B Screening 09/07/1979 Regular Well Visit/Exam 18-64 09/07/1979 Zoster Vaccine (1 of 2) 09/07/2011 Covid-19 Vaccine (3 - 2024-2 6 season) 2025 10/01/2020, 09/10/2020 Influenza Vaccine (#1) 2025 02/24/2020 Pneumococcal vaccine <65 Aged Out No longer eligible based on patient's age to complete this topic Insurance [employer] HMO [employer]MO Care Teams Side Hemmer Relationship Specialty Start Date End Date Esther Eason MD PCP - General Family Medicine 12/17/19
== END 2025-04-15 14:16 | disposition home or self-care (01) ==
LOC: ANHFOHIMG 14:17
PROVIDERS: PCP Family Medicine; Visit Provider Obstetrics & Gynecology
DX: Z12.31 Encounter for screening mammogram for malignant neoplasm of breast (principal)
CPT/HCPCS: 77063; 77067

== ENCOUNTER 2025-06-24 15:04 | Outpatient (CLI) | payer OTHER, SELFPAY ==
--- NOTE | 2025-06-24 15:23 | ECG_ITS ---
Test Date: 2025-06-24 15:30:40 Measurements Intervals [place] Rate: 71 P: 81 VT: 145 QRS: 82 QRSD: 85 T: 71 QT: 375 QTc: 410 Interpretive Statements SINUS RHYTHM BASELINE ARTIFACT- I, AVR, AVL, V4-V5 NORMAL ECG No previous ECG available for comparison Electronically Signed On 06-24-2025 21:14:17 MANAGER DATABASE ADMINISTRATION by Maximilian Arce D.O.
== END 2025-06-24 15:05 | disposition home or self-care (01) ==
LOC: ANHCARD 15:06
DX: R00.2 Palpitations (principal)
CPT/HCPCS: 93005